=== PATIENT | male | born 2000 | race Two or more races ===

== ENCOUNTER 2023-12-04 14:17 | Emergency (ER) | payer MEDICAID ==
[~2023-12-04] VITALS: Ht 172.7 cm; Wt 54.0 kg
[2023-12-04 14:32] VITALS: BP 107/68; PULSE 87; RESP 16; O2SAT 98
== END 2023-12-04 20:27 | disposition left against medical advice (07) ==
LOC: ER 14:17
DX: R10.9 Unspecified abdominal pain (principal); R11.2 Nausea with vomiting, unspecified; R19.7 Diarrhea, unspecified; Z53.21 Procedure and treatment not carried out due to patient leaving prior to being seen by health care provider